=== PATIENT | male | born 1995 | race Caucasian/White ===

== ENCOUNTER 2020-08-28 10:41 | Emergency (ER) | payer OTHER ==
[~2020-08-28] VITALS: Ht 185.4 cm; Wt 85.0 kg
[2020-08-28 10:41] VITALS: BP 131/60
[2020-08-28] MEDS ORDERED: CEPH500C PO (11:38)
== END 2020-08-28 11:45 | disposition home or self-care (01) ==
LOC: M ED 10:41
DX: S80.262A Insect bite (nonvenomous), left knee, initial encounter (principal); S80.861A Insect bite (nonvenomous), right lower leg, initial encounter; W57.XXXA Bitten or stung by nonvenomous insect and other nonvenomous arthropods, initial encounter; Y92.89 Other specified places as the place of occurrence of the external cause